=== PATIENT | male | born 1980 | race Hispanic/Latino ===

== ENCOUNTER 2020-12-17 10:42 | Emergency (ER) | payer OTHER, MEDICAID, SELFPAY ==
[2020-12-17 10:41] VITALS: BP 121/71; PULSE 110; RESP 18; TEMP 36.1; O2SAT 100; BMI 30.7
[2020-12-17 10:48] VITALS: PULSE 105; RESP 18; O2SAT 97
[2020-12-17 10:56] VITALS: O2SAT 98
[2020-12-17 11:00] VITALS: BP 121/76; PULSE 105; RESP 18
--- NOTE | 2020-12-17 11:06 | ED.MEDCLEAR ---
HPI - Medical Clearance General Chief complaint: Medical Clearance Stated complaint: Medical screening Time Seen by Provider: 12/17/20 10:48 Source: patient Mode of arrival: other History of Present Illness HPI Narrative: The patient arrives for group home clearance. He is with and [facility]. He complains of central chest discomfort for 2 weeks. He has a cough. He is a smoker. He has no history of asthma or allergies. He denies fever, chills, or high fever. He denies obvious COVID infections. With abdominal pain, he complains of constipation. Opioid use is suspected. He has no nausea, vomiting or diarrhea. He has no urinary complaints. He apparently has a tachyarrhythmia. He is on multiple cardiac meds. He has tachycardia upon arrival. Related Information Home Medications Medication Instructions Recorded Confirmed [MILRINONE] 11.3 ml INFU Q1H #0 05/16/16 aspirin 81 mg tablet,delayed 81 mg PO QDAY #0 05/16/16 release furosemide 40 mg tablet 40 mg #0 05/16/16 metoprolol tartrate 25 mg tablet 25 mg PO QDAY #0 05/16/16 nitroglycerin 0.4 mg sublingual 0.4 mg SUBLINGUAL #0 05/16/16 tablet (Nitrostat) sacubitril 24 mg-valsartan 26 mg 1 tab PO BID #0 05/16/16 tablet (Entresto) spironolactone 25 mg tablet 25 mg PO QDAY #0 05/16/16 (Aldactone) Allergies Allergy/AdvReac Type Severity Reaction Status Date / Time No Known Drug Allergies Allergy Unverified 12/17/20 10:42 Review of Systems Constitutional Constitutional: Reports as per HPI, Denies chills, Denies fever(s) and Denies headache(s) ENT Ears, Nose, Mouth, and Throat: Denies dizziness, Denies otalgia, Denies headache(s), Denies mouth pain, Denies nasal congestion and Denies sore throat Cardiovascular Cardiovascular: Reports as per HPI Respiratory Respiratory: Denies change in phlegm color, Reports cough and Denies hemoptysis Gastrointestinal Gastrointestinal: Reports as per HPI Genitourinary Genitourinary: Denies dysuria Integumentary/Breasts Comments: No skin lesions. Neurologic Neurologic: Denies confusion, Denies dizziness and Denies headache(s) Psychiatric Psychiatric: Denies confusion Patient History Social History Smoking Status: Never smoker Smoking Status: Never smoker Substance Use Type: opiates Exam Initial Vital Signs Initial Vital Signs: Vital Signs Temperature 97 F L 12/17/20 10:41 Pulse Rate 110 H 12/17/20 10:41 Respiratory Rate 18 12/17/20 10:41 Blood Pressure 121/71 12/17/20 10:41 Pulse Oximetry 100 12/17/20 10:41 Const General: cooperative and No anxious Nutritional Appearance: overweight HENMN Head: normal to inspection, normocephalic and atraumatic Face and sinus: normal facial exam Mouth: oral mucosae normal Eyes General: appearance normal, both eyes and all related structures Pupils: PERRL EOM: EOM intact bilaterally Neck Neck: No JVD Chest Chest: normal inspection of the chest and localized rib tenderness with anteroposterior compression Resp Effort & Inspection: normal respiratory effort Auscultation: clear to auscultation bilaterally Cardio Rate: tachycardic Rhythm: regular rhythm Heart Sounds: S1 normal, S2 normal and no murmurs Pulses: radial pulses present GI Inspection: obesity and other (Mild, diffuse tenderness. No distension. No guarding or rebound.) Palpation: No mass Back/Spine/Pelvis Back: normal to inspection Skin General: no rashes or lesions noted Neuro General: patient alert, patient awake and patient oriented x3 MDM - Medical Clearance Medical Records Medical records narrative: The patient was given his scheduled medications. He has a digital level basically 0. He appears to be noncompliant with medications. He is advised to take medications on a regular basis. 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 His baseline diagnosis is not clear. He is medically clear for departure from here with the police. Lab Data Result diagrams: 12/17/20 11:17 12/17/20 11:17 Labs: Lab Results 12/17/20 12/17/20 12/17/20 Range/Units 11:17 11:17 11:17 WBC 9.2 (4.5-11.0) X10^3/uL RBC 4.86 (4.5-5.9) X10^6/uL Hgb 13.1 L (13.5-17.5) g/dL Hct 40.1 L (41-53) % MCV 82.5 (80-100) fL MCH 27.0 (26-34) PG MCHC 32.7 (30-36) % RDW 15.7 H (11.6-14.8) % Plt Count 333 (150-400) X10^3/uL Neut % (Auto) 71.9 (50-75) % Lymph % (Auto) 21.5 L (25-40) % Wood % (Auto) 5.8 (3-14) % Eos % (Auto) 0.4 L (2-4) % Baso % (Auto) 0.4 (0-2) % Neut # (Auto) 6600 (3005-2286) /uL Lymph # (Auto) 2000 (3013-6250) /uL Wood # (Auto) 500 (0-900) /uL Eos # (Auto) 0 (0-450) /uL Baso # (Auto) 0 (0-100) /uL Sodium 135 L (137-145) mmol/L Potassium 4.2 (3.4-5.1) mmol/L Chloride 105 (98-107) mmol/L Carbon Dioxide 24 (22-32) mmol/L BUN 18 (9-20) mg/dL Creatinine 0.79 (0.66-1.25) mg/dL Estimated GFR > 60.0 (>60) mL/min BUN/Creatinine Ratio 22.8 H (6-22) Glucose 126 H (70-100) mg/dL Calcium 8.8 (8.4-10.2) mg/dL Total Bilirubin 0.6 (0.2-1.3) mg/dL AST 31 (17-59) IU/L ALT 45 (<50) IU/L Alkaline Phosphatase 82 (38-126) U/L Total Protein 6.0 L (6.3-8.2) g/dL Albumin 3.3 L (3.5-5.0) g/dL Globulin 2.7 (1.7-4.1) g/dL Albumin/Globulin Ratio 1.2 (1.0-2.8) Lipase 122 (23-300) U/L Digoxin < 0.4 L (0.8-2.0) ng/mL ECG Data Attestation: I personally reviewed and interpreted this ECG as follows: (Sinus tachycardia rate 117. Poor R-wave R wave progression to the anterior leads. Q-waves in 3. No acute ST T wave changes. ) Discharge Plan Departure Patient Disposition: Home Clinical Impression: Costochondritis, Abdominal pain, Medical clearance for incarceration Instructions: DI for Costochondritis Activity Restrictions/Additional Instructions: Take your prescribed medications as ordered. The chest pain is from rib strain. Advil 3 tablets every 8 hours will help. I would recommend follow-up with your regular doctor to review medications as soon as you can. You are medically cleared to depart the ER with police. Prescriptions: No Action furosemide 40 MG tablet 40 mg Qty: 0 RF: 0 aspirin 81 MG tablet,delayed release (DR/EC) 81 mg PO QDAY Qty: 0 RF: 0 nitroglycerin [Nitrostat] 0.4 MG tablet, sublingual 0.4 mg Sublingual Qty: 0 RF: 0 metoprolol tartrate 25 MG tablet 25 mg PO QDAY Qty: 0 RF: 0 sacubitril-valsartan [Entresto] 24 MG/26 MG tablet 1 tab PO BID Qty: 0 RF: 0 spironolactone [Aldactone] 25 MG tablet 25 mg PO QDAY Qty: 0 RF: 0 [MILRINONE] 11.3 ml INFU Q1H Qty: 0 RF: 0 Stand Alone Forms: Work Release Note
[2020-12-17 11:25] LABS: Add Manual Diff / Slide Review NO; Basophils Absolute Auto 0 /uL (0-100); Basophils Percent Auto 0.4 % (0-2); Eosinophils Absolute Auto 0 /uL (0-450); Eosinophils Percent Auto 0.4 % (2-4); Hematocrit 40.1 % (41-53); Hemoglobin 13.1 g/dL (13.5-17.5); Lymphocytes Absolute Auto 2000 /uL (1100-4500); Lymphocytes Percent Auto 21.5 % (25-40); Mean Corpuscular HGB Conc 32.7 % (30-36); Mean Corpuscular Volume 82.5 fL (80-100); Monocytes Absolute Auto 500 /uL (0-900); Monocytes Percent Auto 5.8 % (3-14); Neutrophils Absolute Auto 6600 /uL (1500-7000); Neutrophils Percent Auto 71.9 % (50-75); Platelet Count 333 X10^3/uL (150-400); Red Blood Cell Count 4.86 X10^6/uL (4.5-5.9); Red Cell Distribution Width 15.7 % (11.6-14.8); White Blood Cell Count 9.2 X10^3/uL (4.5-11.0)
[2020-12-17 11:30] VITALS: BP 108/64; PULSE 105; RESP 20; O2SAT 98
[2020-12-17 11:36] LABS: Alanine Aminotransferase 45 IU/L (<50); Albumin 3.3 g/dL (3.5-5.0); Albumin Globulin Ratio 1.2 (1.0-2.8); Alkaline Phosphatase 82 U/L (38-126); Aspartate Aminotransferase 31 IU/L (17-59); BUN Creatinine Ratio 22.8 (6-22); Bilirubin Total 0.6 mg/dL (0.2-1.3); Blood Urea Nitrogen 18 mg/dL (9-20); Calcium 8.8 mg/dL (8.4-10.2); Carbon Dioxide 24 mmol/L (22-32); Chloride 105 mmol/L (98-107); Estimated Glomerular Filt Rate > 60.0 mL/min (>60); Globulin 2.7 g/dL (1.7-4.1); Glucose 126 mg/dL (70-100); HEMOLYSIS < 15 (0-50); Lipase 122 U/L (23-300); Potassium 4.2 mmol/L (3.4-5.1); Sodium 135 mmol/L (137-145)
--- NOTE | 2020-12-17 11:37 | PC.NURSE ---
pt took home meds PO, bottles verified and verbal verified digoxin 125 mcg jardiance 10 mg furosemide 20 mg bottles returned to belongings in possession of police shift commander
[2020-12-17 11:44] LABS: Digoxin < 0.4 ng/mL (0.8-2.0)
[2020-12-17 12:15] VITALS: BP 112/71; PULSE 120; O2SAT 96
== END 2020-12-17 12:16 | disposition home or self-care (01) ==
PROVIDERS: Emergency Provider Emergency Medicine
DX: Z02.89 Encounter for other administrative examinations (principal); M94.0 Chondrocostal junction syndrome [Tietze]; R10.9 Unspecified abdominal pain; R00.0 Tachycardia, unspecified; R05.9 Cough, unspecified
CPT/HCPCS: 36415; 80053; 80162; 83690; 85025; 93005; 99282; 99284